=== PATIENT | male | born 1945 | race Caucasian/White ===

== ENCOUNTER 2019-10-09 21:12 | Emergency (ER) | payer OTHER ==
[~2019-10-09] VITALS: Ht 170.2 cm; Wt 77.1 kg
[2019-10-09 21:18] VITALS: Ht 170.2 cm; Wt 77.1 kg
[2019-10-09 22:35] VITALS: BP 128/79
== END 2019-10-09 22:35 | disposition home or self-care (01) ==
LOC: ED 21:12
DX: S61.211A Laceration without foreign body of left index finger without damage to nail, initial encounter (principal); I10 Essential (primary) hypertension; E11.9 Type 2 diabetes mellitus without complications; W45.8XXA Other foreign body or object entering through skin, initial encounter; Y93.89 Activity, other specified; Y92.89 Other specified places as the place of occurrence of the external cause; Y99.8 Other external cause status
CPT/HCPCS: 90715